=== PATIENT | female | born 1980 | race American Indian/Alaskan Native ===

== ENCOUNTER 2019-02-01 18:36 | Emergency (ER) | payer OTHER ==
[2019-02-01 18:53] VITALS: BP 145/93
--- NOTE | 2019-02-01 18:54 | Event Note ---
ED Screening Note Date of service: 02/01/19 Time: 18:50 ED Screening Note: This is a 38 y.o. F. that presents to the ER with neck and right shoulder pain. Denies loc, chest pain, sob, n/v. This initial assessment/diagnostic orders/clinical plan/treatment(s) is/are subject to change based on patients health status, clinical progression and re- assessment by fellow clinical providers in the ED. Further treatment and workup at subsequent clinical providers discretion. Patient/guardian urged not to elope from the ED as their condition may be serious if not clinically assessed and managed. Initial orders include: X-rays
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
== END 2019-02-01 21:32 | disposition left against medical advice (07) ==
LOC: ED 18:36
DX: Z04.1 Encounter for examination and observation following transport accident (principal); Z53.21 Procedure and treatment not carried out due to patient leaving prior to being seen by health care provider
CPT/HCPCS: 72040